=== PATIENT | male | born 1990 | race Caucasian/White ===

== ENCOUNTER 2021-01-21 19:52 | Emergency (ER) | payer OTHER ==
[2021-01-21] MEDS ORDERED: SODIUM CHLORIDE 0.9% 1,000 ML IV STA (20:27)
--- NOTE | 2021-01-21 20:36 | ED ---
General Adult HPI - General Chief complaint: Skin/Abscess/Foreign Body Stated complaint: Rash Source: patient, RN notes reviewed, old records reviewed Mode of arrival: ambulatory Limitations: no limitations - History of Present Illness Initial comments: 30-year-old male patient presents to the emergency room from [place] with complaints of a generalized rash and left-sided low back pain. He is given Bactrim to prevent infection on January 04 and now has a rash all over his body. Patient states that he was an IV drug abuser and his a history of spinal epidural abscess. States was in [place] and hospitalized for 2 months at that time. 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 He is supposed be getting them every 3 weeks however he is at [place] and he has not been getting them. Patient denies any shortness of breath or difficulty in breathing. He denies any chest pain. He denies any fevers, nausea or vomiting. Patient is alert and oriented 4 with no complaints of weakness, incontinence or saddle anesthesia. Severity scale (1-10): 7 Quality: aching Consistency: constant Improves with: none Worsens with: none Associated Symptoms: other (Generalized rash) Treatments Prior to Arrival: none - Related Data Allergies Allergy/AdvReac Type Severity Reaction Status Date / Time No Known Allergies Allergy Verified 01/21/21 20:07 Review of Systems ROS Statement: Those systems with pertinent positive or pertinent negative responses have been documented in the HPI. ROS Other: All systems not noted in ROS Statement are negative. Past Medical History Additional Past Medical History / Comment(s): brutnos agamma globulinemia, spinal infection History of Any Multi-Drug Resistant Organisms: None Reported Past Psychological History: No Psychological Hx Reported Smoking Status: Current every day smoker Past Alcohol Use History: Daily Past Drug Use History: Heroin General Exam Limitations: no limitations General appearance: alert, in no apparent distress Head exam: Present: atraumatic, normocephalic, normal inspection Eye exam: Present: normal appearance, PERRL, EOMI. Absent: scleral icterus, conjunctival injection, nystagmus, periorbital swelling Pupils: Present: normal accommodation ENT exam: Present: normal exam, normal oropharynx, mucous membranes moist Neck exam: Present: normal inspection, full ROM. Absent: tenderness, meningismus, lymphadenopathy, thyromegaly Respiratory exam: Present: normal lung sounds bilaterally. Absent: respiratory distress, wheezes, rales, rhonchi, stridor, chest wall tenderness, accessory muscle use, decreased breath sounds, prolonged expiratory Cardiovascular Exam: Present: bradycardia GI/Abdominal exam: Present: soft, normal bowel sounds. Absent: distended, tenderness, guarding, rebound, rigid Extremities exam: Present: full ROM, tenderness (b/l ankle rash), normal ca pillary refill. Absent: pedal edema, joint swelling, calf tenderness Back exam: Present: normal inspection, full ROM, tenderness (Left lower lumbar spine). Absent: CVA tenderness (R), CVA tenderness (L), muscle spasm, paraspinal tenderness, vertebral tenderness Expanded Back exam: Absent: saddle anesthesia Back exam: Negative Straight Leg Raising: Left, Right Neurological exam: Present: alert, oriented X3, CN II-XII intact. Absent: motor sensory deficit Psychiatric exam: Present: normal affect, normal mood Skin exam: Present: warm, dry, intact, normal color, other (macular papular rash to b/l lower extremities, axillas, ). Absent: rash, cyanosis, diaphoretic, petechiae, pallor, mottled, abrasion Course Vital Signs 01/21/21 20:02 Temperature 97.9 F Pulse Rate 59 L Respiratory 20 Rate Blood Pressure 157/70 O2 Sat by Pulse 94 L Oximetry Medical Decision Making - Medical Decision Making CT the abdomen and pelvis with contrast shows no acute abnormality within the abdomen or pelvis, a left lower lobe airspace consolidation and atelectasis with buying loss. There is no paraspinal mass. There is a steel sclerosis of L5-S1 consistent with chronic discitis. WBC count is 7.2, hemoglobin and hematocrit is 13 and 39 respectively. Electrolytes are within normal limits. C-reactive protein is 2.3. UA is negative for infection. Patient has no fevers, nausea vomiting or diarrhea. He has no chest pain or shortness of breath. There is no tongue swelling or difficulty in breathing. This is likely a drug reaction from Bactrim and patient will be treated with Benadryl. Case discussed with Dr Oscar. - Lab Data Result diagrams: 01/21/21 20:32 01/21/21 20:32 Lab Results 01/21/21 01/21/21 01/21/21 Range/Units 20:32 20:32 20:32 WBC 7.2 (3.8-10.6) k/uL RBC 4.62 (4.30-5.90) m/uL Hgb 13.0 (13.0-17.5) gm/dL Hct 39.3 (39.0-53.0) % MCV 85.1 (80.0-100.0) fL MCH 28.1 (25.0-35.0) pg MCHC 33.1 (31.0-37.0) g/dL RDW 19.4 H (11.5-15.5) % Plt Count 408 (150-450) k/uL MPV 7.2 Neutrophils % 58 % Lymphocytes % 24 % Monocytes % 8 % Eosinophils % 7 % Basophils % 1 % Neutrophils # 4.2 (1.3-7.7) k/uL Lymphocytes # 1.7 (1.0-4.8) k/uL Monocytes # 0.6 (0-1.0) k/uL Eosinophils # 0.5 (0-0.7) k/uL Basophils # 0.1 (0-0.2) k/uL Anisocytosis Slight Microcytosis Slight Sodium 137 (137-145) mmol/L Potassium 4.6 (3.5-5.1) mmol/L Chloride 104 (98-107) mmol/L Carbon Dioxide 27 (22-30) mmol/L Anion Gap 6 mmol/L BUN 14 (9-20) mg/dL Creatinine 0.95 (0.66-1.25) mg/dL Est GFR (CKD-EPI)AfAm >90 (>60 ml/min/1.73 sqM) Est GFR (CKD-EPI)NonAf >90 (>60 ml/min/1.73 sqM) Glucose 86 (74-99) mg/dL Calcium 9.8 (8.4-10.2) mg/dL Total Bilirubin 0.2 (0.2-1.3) mg/dL AST 27 (17-59) U/L ALT 12 (4-49) U/L Alkaline Phosphatase 119 (38-126) U/L C-Reactive Protein 2.3 H (<1.0) mg/dL Total Protein 5.9 L (6.3-8.2) g/dL Albumin 4.1 (3.5-5.0) g/dL Lipase 69 (23-300) U/L Urine Color Yellow Urine Appearance Cloudy (Clear) Urine pH 5.5 (5.0-8.0) Ur Specific [place] 1.027 (1.001-1.035) Urine Protein Negative (Negative) Urine Glucose (UA) Negative (Negative) Urine Ketones Negative (Negative) Urine Blood Negative (Negative) Urine Nitrite Negative (Negative) Urine Bilirubin Negative (Negative) Urine Urobilinogen <2.0 (<2.0) mg/dL Ur Leukocyte Esterase Negative (Negative) Urine WBC 1 (0-5) /hpf Uric Acid Crystals Few H (None) /hpf Amorphous Sediment Rare H (None) /hpf Urine Mucus Rare H (None) /hpf Disposition Clinical Impression: Drug reaction Disposition: HOME SELF-CARE Condition: Fair Instructions (If sedation given, give patient instructions): Acute Rash (ED), Adverse Drug Reaction (ED) Additional Instructions: Take Benadryl as needed for rash and itching. Return to the emergency room with a shortness of breath, difficulty breathing, nausea and vomiting. Is patient prescribed a controlled substance at d/c from ED?: No Referrals: Nonstaff,Physician [Primary Care Provider] - 1-2 days Time of Disposition: 22:03
[2021-01-21 20:52] LABS: Anisocytosis Slight; Basophils # (A) 0.1 k/uL (0-0.2); Basophils % (A) 1 %; Eosinophils # (A) 0.5 k/uL (0-0.7); Eosinophils % (A) 7 %; HCT 39.3 % (39.0-53.0); Lymphocytes # (A) 1.7 k/uL (1.0-4.8); Lymphocytes % (A) 24 %; MCH 28.1 pg (25.0-35.0); MCHC 33.1 g/dL (31.0-37.0); MCV 85.1 fL (80.0-100.0); Mean Platelet Volume 7.2; Microcytosis Slight; Monocytes # (A) 0.6 k/uL (0-1.0); Monocytes % (A) 8 %; Neutrophils # (A) 4.2 k/uL (1.3-7.7); Neutrophils % (A) 58 %; Platelet Count 408 k/uL (150-450); RBC 4.62 m/uL (4.30-5.90); RDW 19.4 % (11.5-15.5); WBC 7.2 k/uL (3.8-10.6)
[2021-01-21 21:24] LABS: ALT 12 U/L (4-49); AST 27 U/L (17-59); African American GFR (CKD) >90 (>60 ml/min/1.73 sqM); Albumin 4.1 g/dL (3.5-5.0); Alkaline Phosphatase 119 U/L (38-126); Anion Gap 6 mmol/L; Blood Urea Nitrogen 14 mg/dL (9-20); C Reactive Protein 2.3 mg/dL (<1.0); Calcium 9.8 mg/dL (8.4-10.2); Carbon Dioxide 27 mmol/L (22-30); Chloride 104 mmol/L (98-107); Glucose 86 mg/dL (74-99); Lipase 69 U/L (23-300); Non-African American GFR(CKD) >90 (>60 ml/min/1.73 sqM); Potassium 4.6 mmol/L (3.5-5.1); Sodium 137 mmol/L (137-145); Total Bilirubin 0.2 mg/dL (0.2-1.3); Total Protein 5.9 g/dL (6.3-8.2)
[2021-01-21 21:25] LABS: Amorphous Sediment,Urine Rare /hpf; Appearance,Urine Cloudy (Clear); Bilirubin,Urine Negative (Negative); Blood,Urine Negative (Negative); Color,Urine Yellow; Glucose,Urine (UA) Negative (Negative); Ketones,Urine Negative (Negative); Leukocyte Esterase,Urine Negative (Negative); Mucus,Urine Rare /hpf; Nitrite,Urine Negative (Negative); PH, Urine 5.5 (5.0-8.0); Protein,Urine Negative (Negative); Specific Gravity,Urine 1.027 (1.001-1.035); Uric Acid Crystals,Urine Few /hpf; Urobilinogen,Urine <2.0 mg/dL (<2.0); WBC,Urine 1 /hpf (0-5)
--- NOTE | 2021-01-21 21:37 | CT ---
EXAMINATION TYPE: CT abdomen pelvis w con DATE OF EXAM: 01/21/2021 COMPARISON: None HISTORY: abdominal pain, rash, recent spinal infection CT DLP: 726.4 mGycm Automated exposure control for dose reduction was used. CONTRAST: Performed with IV Contrast, patient injected with 100 mL of Isovue 300. There is some infiltrate and atelectasis left lung base. Heart is deviated to the left side. There is no pneumothorax. There is slight elevated left diaphragm compared to the right. Liver and spleen are intact. The bile ducts are nondilated. Gallbladder appears normal. There is no p ancreatic mass. The stomach is intact. There is no adrenal mass. Kidneys show satisfactory contrast opacification. There is no hydronephrosi s. Ureters are not dilated. There is no retroperitoneal adenopathy. There is no inguinal hernia. Ther e is no free fluid in the pelvis. There is no mesenteric edema. There is no ascites or free air. There is no bowel obstruction. There i s no evidence of appendicitis. Lumbar vertebra have normal alignment. There is some osteosclerosis an d L5-S1 with irregular endplates that could relate to chronic discitis. The bony pelvis is intact. Th e hip joints are intact. IMPRESSION: Osteosclerosis at L5-S1 consistent with chronic discitis. No paraspinal mass. No acute abnormality within the abdomen and pelvis. Left lower lobe airspace consolidation and atelectasis with volume loss.
[2021-01-21] MEDS ORDERED: FAMOTIDINE 20 MG/2 ML VIAL IV STA (21:55)
[2021-01-21] MEDS ORDERED: diphenhydrAMINE 50 MG/ML 1 ML VIAL IVP STA (21:55)
[2021-01-21 22:26] VITALS: BP 129/79; PULSE 76; RESP 18; TEMP 98
== END 2021-01-21 22:26 | disposition home or self-care (01) ==
LOC: EC 19:52
DX: R21 Rash and other nonspecific skin eruption (principal); M54.5 Low back pain; T36.8X5A Adverse effect of other systemic antibiotics, initial encounter; F17.200 Nicotine dependence, unspecified, uncomplicated; F11.90 Opioid use, unspecified, uncomplicated
CPT/HCPCS: 36415; 80053; 83690; 85025; 86140; 81001; 74177; 99283; 96374; 96375; 96361 ×2; J1200; Q9967